=== PATIENT | female | born 1950 | race Caucasian/White ===

== ENCOUNTER 2020-04-29 05:07 | Observation (INO) ==
--- NOTE | 2020-03-20 15:56 | PAT Medication Instructions ---
Medication Instructions Date of Service March 20, 2020 Home Medications Boswellia 1 tab PO HS anastrozole 1 mg PO QPM cetirizine [Zyrtec] 10 mg PO QPM cholecalciferol (vitamin D3) 2,000 units PO QPM fluticasone propionate 2 sprays INTNAS DAILY PRN lactobacillus combination no.8 [Adult Probiotic] 3,000 mmu cells PO QPM omeprazole 20 mg PO QPM turmeric root extract 500 mg PO QPM ASK your prescriber and surgeon anastrozole 1 mg PO QPM STOP taking 2 weeks before surgery (or as soon as possible if surgery is within 2 weeks) turmeric root extract 500 mg PO QPM Boswellia 1 tab PO HS Take morning of surgery With a small sip of water, OTHERWISE NOTHING TO EAT OR DRINK AFTER MIDNIGHT: fluticasone propionate 2 sprays INTNAS DAILY PRN (if needed) Take evening before surgery cetirizine [Zyrtec] 10 mg PO QPM cholecalciferol (vitamin D3) 2,000 units PO QPM fluticasone propionate 2 sprays INTNAS DAILY PRN (if needed) lactobacillus combination no.8 [Adult Probiotic] 3,000 mmu cells PO QPM omeprazole 20 mg PO QPM Other Notes If you have any questions please call us at [phone] or [phone] or [phone] or [phone]
--- NOTE | 2020-03-24 13:25 | Anesthesiology Consultation ---
Date of Service March 24, 2020 Assessment & Plan (1) Encounter for pre-operative examination: - Per PAT assessment on 03/24: Travel screen- Lives in [facility]. No known COVID-19 positive contacts. No current COVID-19 related symptoms. Patient had preop COVID testing 01/2020 prior to colonoscopy which was negative. Surgeon arranging preop COVID testing. Awaiting results. Chart Review Chart Review: Acceptable Risk for Surgery (pending surgeon-ordered PCP clearance scheduled 04/06 (MNP)) and Patient seen in Pre Admission Testing Teaching & Discussion Pre-Anesthesia Teaching/Discussion Notes: Instructed NPO after midnight before surgery,except medications with 15 cc of water. Medication instructions provided according to the PAT guidelines. History Surgery Operation Date: 04/29/20 08:40 Proposed Procedures p Right Total Knee Arthroplasty - Abisai Latham MD Height/Weight Height: 5 ft 2 in Weight: 89.4 kg Allergies Allergy/AdvReac Type Severity Reaction Status Date / Time No Known Allergies Allergy Mild Verified 03/17/20 08:55 Medications Home Medications Medication Instructions Recorded Confirmed Last Taken Boswellia 1 tab PO HS 03/17/20 03/17/20 Unknown anastrozole 1 mg PO QPM 03/17/20 03/17/20 Unknown cetirizine [Zyrtec] 10 mg PO QPM 03/17/20 03/17/20 Unknown cholecalciferol (vitamin D3) 2,000 units PO QPM 03/17/20 03/17/20 Unknown fluticasone propionate 2 sprays INTNAS DAILY PRN 03/17/20 03/17/20 Unknown lactobacillus combination no.8 3,000 mmu cells PO QPM 03/17/20 03/17/20 Unknown [Adult Probiotic] turmeric root extract 500 mg PO QPM 03/17/20 03/17/20 Unknown famotidine 20 mg tablet 20 mg PO DAILY #90 tab 03/23/20 Unknown Past Medical History Medical History Allergic rhinitis Anxiety Arthritis GERD (gastroesophageal reflux disease) controlled H/O malignant neoplasm of female breast s/p right mastectomy, chemo (2013) Insomnia Migraine hx Obesity Exercise / Class Metabolic Activity II 4-5 Yardwork/Stairs/Walk up hill Past Family History Family History Sister Diabetes Colorectal cancer Brother Diabetes Leukemia Aunt Ovarian cancer Brother Diabetes Sister Diabetes Father Diabetes Mother Diabetes Past Surgical History Surgical History H/O colonoscopy History of ankle surgery LEFT History of mandibular surgery ROM WNL History of mastectomy right (2012) Hx of hand surgery LEFT THUMB S/P hysterectomy TOTAL S/P knee replacement LEFT Past Anesthesia History No Hx of Anesthesia Complications and No Family Hx of Anesthesia Complications History of PONV No Hx of PONV and No Hx of Motion Sickness Social History Smoking Status: Never smoker Do You Dip or Chew Tobacco: No Hx Alcohol Use: No Hx Substance Use: No Review of Systems Patient denies chest pain, shortness of breath, dyspnea on exertion,fever, chills, cough, wheezing, palpitations. Physical Exam Vital Signs VITALS BP 140/72 P 84 TEMP 98.0 SP02 96%RA RESP 18 PHYSICAL Full neck and c-spine range of motion. Full TMJ range of motion. TMD 3 finger breaths Mallampati Score 2 Dentition: full upper, partial lower Lungs: clear throughout to auscultation Cardiac: regular rate and rhythm, no murmurs noted Spine: normal Carotid arteries: negative bruit Extremities: no edema Testing Laboratory Results 03/24/20 13:44 03/24/20 13:44 PT 10.7 Seconds (9.0-12.0) 03/24/20 13:44 INR 1.0 (0.9-1.1) 03/24/20 13:44 APTT 26.4 Seconds (21.0-31.0) 03/24/20 13:44 Hemoglobin A1c 6.2 % (4.5-5.6) H 03/24/20 13:44 Urine Color Yellow 03/24/20 13:44 Urine Appearance Clear (Clear) 03/24/20 13:44 Urine pH 5.0 (4.5-7.5) 03/24/20 13:44 Ur Specific [place] 1.019 (1.000-1.030) 03/24/20 13:44 Urine Protein Negative (Negative) 03/24/20 13:44 Urine Glucose (UA) 1+ (Negative) H 03/24/20 13:44 Urine Ketones Negative (Negative) 03/24/20 13:44 Urine Nitrite Negative (Negative) 03/24/20 13:44 Ur Leukocyte Esterase 1+ (Negative) H 03/24/20 13:44 Urine WBC (Auto) 5-10 /hpf (0-5) H 03/24/20 13:44 Urine RBC (Auto) 0-4 /hpf (0-4) 03/24/20 13:44 U Hyaline Cast (Auto) 1-5 /lpf (0-5) 03/24/20 13:44 U Epithel Cells (Auto) 10-20 /lpf (0-5) H 03/24/20 13:44 Urine Bacteria (Auto) Negative (Negative) 03/24/20 13:44 Blood Type A Positive 03/24/20 13:44 Antibody Screen NEGATIVE 03/24/20 13:44 Elevated glucose at 273-- but hgba1c 6.2%; patient will be seeing PCP 04/06/20 ([facility] [place]) prior to surgery Electrocardiogram Date: 03/24/20 Findings: + NSR @ (79) Chest X-Ray Date: 03/24/20 Findings: + NAD
--- NOTE | 2020-03-24 14:07 | XRay Report ---
XR chest Pre-admission PA/Lat HISTORY: 70 years-old Female pat preoperative exam. No acute chest complaints COMPARISON: Chest radiograph 01/16/2020 TECHNIQUE: PA and lateral views of the chest FINDINGS: Cardiomediastinal and hilar silhouettes are within normal limits. No pneumothorax, pleural effusion, airspace consolidation or overt pulmonary edema. Bones of the chest appear grossly intact. IMPRESSION: No acute process. ACT 112: Negative or not required by law. The above report was generated using voice recognition software. It may contain grammatical, syntax o r spelling errors. Electronically signed by: Rico Muhammad M.D. 03/24/2020 2:05 PM
[2020-03-24 14:49] LABS: Basophils # (auto) 0.04 K/uL (0-0.2); Basophils % (auto) 0.5 %; Eosinophils # (auto) 0.15 K/uL (0-0.5); Hematocrit (blood only) 42.8 % (37-47); Hemoglobin 14.2 g/dL (12.0-16.0); Immature Granulocytes # (auto) 0.03 K/uL (0.00-0.02); Immature Granulocytes % (auto) 0.4 %; Lymphocytes # (auto) 2.14 K/uL (1.2-3.4); Mean Corpuscular Hemoglobin 29.2 pg (25-34); Mean Corpuscular Hgb Conc 33.2 g/dL (32-36); Mean Corpuscular Volume 87.9 fL (80-100); Mean Platelet Volume 11.4 fL (7.4-10.4); Monocytes # (auto) 0.44 K/uL (0.11-0.59); Monocytes % (auto) 5.8 %; Neutrophils # (auto) 4.83 K/uL (1.4-6.5); Neutrophils % (auto) 63.3 %; Platelet Count 238 K/uL (130-400); RDW Coefficient of Variation 14.8 % (11.5-14.5); RDW Standard Deviation 47.5 fL (36.4-46.3); Red Blood Count 4.87 M/uL (4.2-5.4); White Blood Count 7.63 K/uL (4.8-10.8)
[2020-03-24 14:51] LABS: Appearance Urine Clear (Clear); Bacteria Urine Automated Negative (Negative); Bilirubin Urine Negative (Negative); Blood Urine Negative (Negative); Color Urine Yellow; Glucose Urine UA 1+ (Negative); Ketones Urine Negative (Negative); Leukocyte Esterase Urine 1+ (Negative); Nitrite Urine Negative (Negative); Protein Urine Negative (Negative); RBC Urine Automated 0-4 /hpf (0-4); Specific Gravity Urine 1.019 (1.000-1.030); Urobilinogen Urine Negative (Negative)
[2020-03-24 14:56] LABS: Albumin Level 3.5 gm/dl (3.4-5.0); BUN Creatinine Ratio 16.8 (10-20); Calcium 10.3 mg/dl (8.5-10.1); Creatinine Clr Calc Pharmacy 47.6 ml/min; Est GFR (African American) 57.5; Est GFR (Non-African American) 49.6; Potassium 4.8 mmol/L (3.5-5.1)
[2020-03-24 15:00] LABS: Partial Thromboplastin Ratio 0.9; Partial Thromboplastin Time 26.4 Seconds (21.0-31.0); Prothrombin Time 10.7 Seconds (9.0-12.0)
--- NOTE | 2020-03-24 15:51 | Electrocardiogram Report ---
Test Reason : Blood Pressure : / mmHG Vent. Rate : 079 BPM Atrial Rate : 079 BPM P-R Int : 148 ms QRS Dur : 076 ms QT Int : 386 ms P-R-T Axes : 062 -14 048 degrees QTc Int : 442 ms Normal sinus rhythm Normal ECG When compared with ECG of 15-JAN-2010 15:41, No significant change was found Confirmed by Scott Arroyo ([id number]) on 03/24/2020 3:51:08 PM Referred By: Abisai Latham Confirmed By:Scott Arroyo
[2020-03-25 06:06] LABS: Estimated Average Glucose 131 mg/dl; Hemoglobin A1C 6.2 % (4.5-5.6)
--- NOTE | 2020-04-28 20:23 | History and Physical Report ---
DATE OF ADMISSION: 04/29/2020 CHIEF COMPLAINT: Chronic right knee pain. HISTORY OF PRESENT ILLNESS: This is a 70-year-old female patient of Dr. Latham'rukhsana complaining of chronic right knee pain, longstanding, now progressively getting worse. The patient has been diagnosed with end-stage osteoarthritis per clinical and radiographic exams. The patient has failed conservative treatment including intra-articular injections, anti-inflammatories, home exercise program and the use of a brace. The patient wished to proceed with a right total knee arthroplasty. PAST MEDICAL HISTORY: Acid reflux, obesity, diet medications, and breast cancer. SOCIAL HISTORY: Nonsmoker. Occasional drinker. PAST SURGICAL HISTORY: Left ankle, left knee, left thumb, hysterectomy and jaw surgery. FAMILY HISTORY: Noncontributory. REVIEW OF SYSTEMS: The patient complains of chronic right knee pain, otherwise denies any shortness of breath, chest pain, nausea, vomiting or any other joint complaints. PHYSICAL EXAMINATION: GENERAL: Well-developed, well-nourished 70-year-old female in no acute distress. She is alert and oriented x3 and pleasant. HEENT: Normocephalic, atraumatic. Extraocular motions are intact. Pupils are equal and reactive to light. HEART: Regular rate and rhythm, no murmurs. LUNGS: Clear. ABDOMEN: Soft, nontender, bowel sounds present. EXTREMITIES: Right lower extremity limited range of motion of 0-120 with a varus deformity. Medial joint line tenderness with crepitation and pain with range of motion. Neurologically and neurovascularly intact with 5/5 strength. DIAGNOSES: Right knee end-stage osteoarthritis, acid reflux, obesity, diet medications, and breast cancer. PLAN: The patient was advised of his diagnosis. Indications, risks, benefits, postop course have all been reviewed. The patient wished to proceed with right total knee arthroplasty. Necessary consent forms, preoperative testing and clearances will be obtained.
[2020-04-29] MEDS ORDERED: dexAMETHasone 4 MG TAB PO SCH (06:00)
[2020-04-29] MEDS ORDERED: TRANEXAMIC ACID 1,000 MG **IV Intra-op IV SCH (06:00)
[2020-04-29] MEDS ORDERED: CeleBREX 200 MG CAP PO SCH (06:00)
[2020-04-29] MEDS ORDERED: FAMOTIDINE 20 MG TAB PO SCH (06:00)
[2020-04-29] MEDS ORDERED: CEFAZOLIN 2000MG 2,000 MG/15 ML SYR IV SCH (06:00)
[2020-04-29] MEDS ORDERED: TRANEXAMIC ACID 1,000 MG **IV Pre-op IV SCH (06:00)
[2020-04-29] MEDS ORDERED: GABAPENTIN 300 MG CAP PO SCH (06:00)
[2020-04-29] MEDS ORDERED: ROPIVACAINE 0.5% HCL/PF 150 MG, BUPIVACAINE 0.5% MPF 30 ML, EPINEPHrine 30MG/30ML (OR U... INFIL SCH (06:00)
[2020-04-29] MEDS ORDERED: ACETAMINOPHEN 500 MG TAB PO SCH (06:00)
[2020-04-29] MEDS ORDERED: LR 500ML BOLUS, THEN 15ML/HR IV SCH (06:00)
[2020-04-29] MEDS ORDERED: METOCLOPRAMIDE HCL 10 MG TABLET PO SCH (06:00)
[2020-04-29] MEDS ORDERED: BUPIVACAINE 0.5 % 5 MG/1 ML PF 10ML VIAL ONE (06:15)
[2020-04-29] MEDS ORDERED: BUPIVACAINE/EPINEPHRINE 0.25% 1:200,000 30 ML VIAL ONE (06:15)
[2020-04-29] MEDS ORDERED: MIDAZOLAM HCL 1 MG/ML 2ML VIAL ONE (06:21)
[2020-04-29] MEDS ORDERED: fentaNYL citrate 100 MCG/2 ML VIAL ONE (06:22)
[2020-04-29] MEDS ORDERED: LIDOCAINE HCL 2% 2 ML VIAL/AMP(20MG/ML) INFIL ONE (06:27)
[2020-04-29] MEDS ORDERED: ONDANSETRON INJ 2 MG/ML 2 ML VIAL ONE (06:27)
[2020-04-29] MEDS ORDERED: PROPOFOL IV EMULSION 10 MG/ML 20 ML VIAL IV ONE ×3 (06:27→08:40)
[2020-04-29] MEDS ORDERED: fentaNYL citrate 100 MCG/2 ML VIAL IV PRN (06:40)
[2020-04-29] MEDS ORDERED: ONDANSETRON INJ 2 MG/ML 2 ML VIAL IV PRN ×2 (06:40→09:52)
[2020-04-29] MEDS ORDERED: ATROPINE SULFATE 0.1 MG/ML 10ML SYR IV PRN (06:40)
[2020-04-29] MEDS ORDERED: HYDROmorphone INJ 2 MG/ML SYR/VIAL IV PRN (06:40)
[2020-04-29] MEDS ORDERED: ePHEDrine sulfate 50 MG/ML AMP IV PRN (06:40)
[2020-04-29] MEDS ORDERED: BACITRACIN INJ 50,000 UNIT VIAL ONE (06:44)
[2020-04-29] MEDS ORDERED: ORTHO JOINT ANESTHETIC ONE (06:44)
--- NOTE | 2020-04-29 06:54 | History & Physical Bridge Note ---
Date of Service April 29, 2020 History & Physical Bridge Note I have examined the patient, reviewed the History & Physical and in the interval since the performance of the History & Physical I have noted the following changes of clinical significance: no changes noted
[2020-04-29] MEDS ORDERED: ePHEDrine sulfate 50 MG/ML SYR ONE (07:31)
--- NOTE | 2020-04-29 08:44 | Operative Report ---
Post Operative Report Pre & Post Diagnosis Operation Date: 04/29/20 07:00 Pre-Op Diagnosis: Unilateral Primary Osteoarthritis, Right Knee Post-Op Diagnosis: Unilateral Primary Osteoarthritis, Right Knee I identified the patient and participated in the time-out.: Yes Procedure Operation Date: 04/29/20 07:00 Actual Procedures p Right Total Knee Arthroplasty(Right) - Abisai Latham MD Surgeon Abisai Latham MD Butter Printer Bruce FARRELL Estimated Blood Loss 5 Findings Consistent with Post-Op Diagnosis Specimens Bone cuts Drains 2 Hemovac Anesthesia Type MAC Spinal Regional Complications none Disposition Accompanied Patient To Recovery: No Disposition: Recovery Room Indications 70 female with progressive osteoarthritis in right knee. Radiographs demonstrate [id number] medial patellofemoral joint and moderately advanced medial compartment osteoarthritis .patient has successful left knee replacement Description of Procedure The patient was taken to the operating room and anesthetized under spinal MAC regional. Patient was placed supine on the the operating table. A pneumatic tourniquet was placed about the right moderately obese upper thigh. The knee exam demonstrated no instability patellofemoral crepitation good range of motion 0 through 130. The involved leg was elevated exsanguinated with Esmarch bandage and the pneumatic tourniquet was raised to 325 millimeters mercury. A longitudinal incision was made across the anterior knee. Skin flaps were elevated. An incision was made into the medial retinaculum and extended up into the mid third of the quadriceps tendon and extended down to the tibial tubercle. Intra-articular findings demonstrated tricompartmental DJD with grade 4 medial patellofemoral OA and grade III chondromalacia medial compartment. The knee was exposed by excising cruciate ligaments and menisci. The infrapatellar fat pad was resected. The fat pad over the anterior femur at the upper aspect of the articular surface was resected for placement of the component in that area. A subperiosteal peel lateral release was performed around the patella The Maya [employer] Nephew journey 2.0 posterior stabilized total knee arthroplasty system was utilized for the procedure. The custom femoral cutting guide was pinned in position. The distal femoral cut was made. The size 4, 5 in 1 cutting block was placed. The anterior posterior and chamfer cuts were made. The knee was extended and a free hand cut technique was performed to the patella. The patella with was measured and the width was reproduced using a 32 symmetrical patella component. 3 drill holes are made for the patella component pegs. The tibia was then subluxed. The custom tibial cutting block was pinned in position and the proximal tibial cut was made with the oscillating saw. The size 2 tibial trial was externally rotated in line with the tibial tubercle and pinned in position. The punch for the stem was used. The femoral trial was inserted and centered the notch cutting devices were used and the collet was placed. Tibial trials were used for the insert. The size 12 trial gave balanced ligaments through full range of motion. Patella tracking was assessed with range of motion. The patella tracked centrally. The trials were removed. The Orthomix anesthetic cocktail was injected per protocol. The cut bone surfaces and soft tissue were copiously irrigated with antibiotic solution with bacitracin. The final components were cemented with Simplex cement. The final components were Maya [employer] Nephew journey 2.0 size 4 right posterior stabilized femoral component, 2 tibial baseplate, 12 mm high flex posterior stabilized polyethylene tibial insert and 32 symmetrical patella.. While the cement cured the Betadine soak was used per protocol. When the cement cured the knee was copiously irrigated with pulsatile lavage antibiotic solution with bacitracin. 2 drains were brought out laterally connected to Hemovac. The quadriceps tendon and medial retinaculum were closed with interrupted [id number] #1 Vicryl sutures. The knee was taken through full range of motion and repair was secure. The subcutaneous tissues were closed with 2-0 Vicryl sutures. The skin was closed with tatum. A sterile dressing was applied. The tourniquet was let down and the patient had good capillary refill to the extremity. The patient tolerated the procedure well. My physician assistant quality manager Bruce FARRELL assisted in the procedure including prepping draping leg positioning soft tissue retraction instrument management and assisted in the closure ,dressings application and will participate in postoperative care the patient. I attest to the content of the Intraoperative Record and any orders documented therein. Any exceptions are noted below.
--- NOTE | 2020-04-29 09:42 | XRay Report ---
XR knee RT 1 or 2V routine CLINICAL HISTORY: Surgical Post Op COMPARISON: None FINDINGS: Alignment of the total right knee arthroplasty is anatomic. There is no periprosthetic fra cture or unexpected radiopaque foreign body. There are skin tatum. IMPRESSION: Expected findings following total right knee arthroplasty. ACT 112: Negative or not required by law. Electronically signed by: Petey Rao M.D. 04/29/2020 9:40 AM
[2020-04-29] MEDS ORDERED: HYDROmorphone INJ 0.5 MG/0.5 ML SYR IV PRN (09:52)
[2020-04-29] MEDS ORDERED: FLUTICASONE PROPIONATE NA SPR 16 GM BTL PRN (09:52)
[2020-04-29] MEDS ORDERED: MAGNESIUM HYDROXIDE SUSP 30 ML UDC PO PRN (09:52)
[2020-04-29] MEDS ORDERED: NALOXONE HCL 0.4 MG/1 ML VIAL/CARP IV PRN (09:52)
[2020-04-29] MEDS ORDERED: bisacodyL 10 MG SUPP PR PRN (09:52)
[2020-04-29] MEDS: SODIUM CHLORIDE 0.9% 1000ML 1,000 ML IV SCH ×2 (10:04→20:35)
--- NOTE | 2020-04-29 10:16 | Hospitalist Consultation ---
Date of Consultation April 29, 2020 Assessment & Plan (1) Status post total right knee replacement: - Pain management, bowel regimen and DVT ppx with ASA 81 mg BID per the primary team - PT/OT consults, pt is planning on home health services for PT/OT initially. Lives alone, daughter planning on staying with her for several days after discharge. - Follow am CBC to monitor for acute blood loss (2) H/O malignant neoplasm of female breast: (3) History of mastectomy: -History of such in 2013, in remission -Continue anastrozole 1 mg QPM (4) Prediabetes: -A1c = 6.2 from 03/26/2020 -Monitor glucose with additional steroids given during surgical procedure, likely to be elevated in the interim, diet and exercise encouraged (5) Obesity: -BMI 36.3, diet and exercise to be encouraged while what is seeing here for leg other than being septic from something (6) Anxiety: -History of such, well-controlled, not on medication (7) Insomnia: -May cont Boswellia for sleep prn (8) Allergic rhinitis: - Can continue TIE INSPECTOR cetirizine, turmeric, Boswellia for anti-inflammatory properties. - Nasal spray (9) Urinary retention: Around 12:00 on the day of surgery, she was noted to be bladder scanned for 900 mL's. A straight catheterization was performed and the nurse was able to drain 1200 mL's of urine. Continue bladder scans and straight cath as needed Likely secondary to anesthesia (10) DVT prophylaxis: DVT ppx: asa bid, ambulatory CODE: FULL Thank you for involving us in the care of Mrs. Lewis. Please do not hesitate to call with questions or concerns. At this time medicine service will sign off. Supervising Physician Co-Signing Physician Notes PA Supervision Note: I personally saw and examined the patient. I verified all strickland points and agree with JAMI Coffman with the following exceptions and/or additions: Patient feeling quite well after surgery. Blood pressure is mildly elevated but just with straight cath for 1200 mL's of urine. Otherwise denies chest pain or shortness of breath, no nausea or lightheadedness, no headache. She has not eaten yet. Is feeling hungry. Has very minimal pain in the right knee. She is able to feel her feet and wiggle her toes. History and ROS reviewed as above Vitals reviewed Gen: [AAOx3, NAD, obese] HEENT: [anicteric sclerae, EOMI] CV: [RRR no mgr nl S1S2] Pulm: [CTAB no wcr] Abd: [+BS soft NT ND no masses or hernias] Ext: [no edema, 2+ DP pulses, Right knee with Rickey wrap in place not removed with ice pack over the right knee] Skin: [no rashes, warm/dry] Neuro: [full strength throughout] 70-year-old female with history of GERD, obesity, osteoarthritis, breast cancer, and allergies, here for right TKA. Doing very well Minimal elevation blood pressure likely secondary to pain and urinary retention. If urinary retention persists past 24 hours, recommend consultation with urology. Hospitalist service will sign off at this time. Thank you for this consultation. History of Present Illness Reason for Consultation: Medical management postoperatively Attending Physician: Abisai Latham MD History of Present Illness This is a 70-year-old female with PMHx of breast cancer history of right mastectomy and chemotherapy in 2013, prediabetes, GERD, arthritis, anxiety, obesity with BMI of 36.3, migraine history, insomnia and allergic rhinitis who presented for elective right total knee arthroplasty by Dr. Latham on 04/29/2020. She reports doing well after surgery, is able to feel her toes and wiggle them on the right, still numb in the right knee. She has not yet eaten anything. Patient plans to have her daughter stay with her for several days after going home from the hospital as she lives alone, is hopeful that she can have home health services set up prior to DC for in-home PT/OT. Denies any other acute complaints. Allergies Allergy/AdvReac Type Severity Reaction Status Date / Time No Known Allergies Allergy Mild Verified 04/29/20 05:28 Home Medications Home Medications Medication Instructions Recorded Confirmed Type Boswellia 1 tab PO HS 03/17/20 04/29/20 History anastrozole 1 mg PO QPM 03/17/20 04/29/20 History cetirizine [Zyrtec] 10 mg PO QPM 03/17/20 04/29/20 History cholecalciferol (vitamin D3) 2,000 units PO QPM 03/17/20 04/29/20 History fluticasone propionate 2 sprays INTNAS DAILY PRN 03/17/20 04/29/20 History lactobacillus combination no.8 3,000 mmu cells PO QPM 03/17/20 04/29/20 History [Adult Probiotic] turmeric root extract 500 mg PO QPM 03/17/20 04/29/20 History famotidine 20 mg tablet 20 mg PO DAILY #90 tab 03/23/20 04/06/20 Rx Patient History Medical History (Updated 04/29/20 @ 12:17 by Maria T Edgar MD) Allergic rhinitis Anxiety Arthritis GERD (gastroesophageal reflux disease) controlled H/O malignant neoplasm of female breast s/p right mastectomy, chemo (2013) Insomnia Migraine hx Obesity Surgical History (Updated 04/29/20 @ 10:09 by Ashely Coffman PA-C) H/O colonoscopy History of ankle surgery LEFT History of mandibular surgery ROM WNL History of mastectomy right (2012) Hx of hand surgery LEFT THUMB S/P hysterectomy TOTAL S/P knee replacement LEFT Family History Sister Diabetes Colorectal cancer Brother Diabetes Leukemia Aunt Ovarian cancer Brother Diabetes Sister Diabetes Father Diabetes Mother Diabetes Social History (Updated 04/18/19 @ 06:38 by Linh Bhatia MD) Smoking Status: Never smoker Second Hand Exposure: Yes (SPOUSE SMOKED); Do You Dip or Chew Tobacco: No; Hx Alcohol Use: No Hx Substance Use: No Preferred Language: Tajik Communication Ability: Effective Management Engineer Required: No Beliefs That Will Affect Care: None Current Living Situation: Alone Other Information That Helps Us Care for You: Yes (SPOUSE 3 YRS AGO) Feels Safe at Home: Yes Safety Concerns: Feels Safe At This Time Assistive Devices: Denture - Upper, Denture - Lower and Glasses Assistive Devices Comment: PARTIAL LOWER/FULL UPPER Review of Systems Review of Systems: Constitutional: No fever, sweats or chills Eyes: No diplopia, no worsening or blurred vision ENT: normal hearing, no trouble swallowing Respiratory: No cough, sputum, dyspnea at rest or on exertion Cardiovascular: No chest pain, tightness or palpitations Abdomen: No pain, nausea, vomiting, diarrhea or constipation Musculoskeletal: No joint pain, calf pain, swelling Neurologic: No weakness, numbness/tingling, or balance problems Psychiatric: No anxiety or depression Skin: No rash or itch Physical Exam 2 Physical Exam: General: awake, alert, no apparent distress, + obese, BMI 36.3 Head: Normocephalic, atraumatic ENT: PERRL, EOMI, no pharyngeal exudate, mucous membranes moist Chest: Clear to auscultation, on room air, no adventitious breath sounds Cardiac: Regular rate and rhythm, no murmur, no JVD, normal peripheral pulses, good capillary refill Abdominal: NABS x 4 quadrants, soft, nondistended, nontender to palpation, no rebound or guarding Extremities: + RLE has RICKEY wrap, ice pack in place, bandage C/D/I, SALO drain in place, otherwise normal inspection, no peripheral edema or erythema, calfs nontender to palpation Psych: Normal mood and affect Neuro: AAO x 3, strength intact bilaterally and rated 5/5, no motor deficits, speech is clear, no peripheral sensory deficits Results & Data Results & Data ([facility]) Vital Signs (Past 12 Hours) Vital Signs Temp Pulse Pulse Resp BP BP Pulse Ox 04/29/20 09:55 36.5 C 70 16 113/67 93 04/29/20 09:30 73 18 132/66 93 04/29/20 09:20 36.4 C L 70 16 135/60 93 04/29/20 09:10 77 16 126/67 94 04/29/20 09:02 36.6 C 85 19 128/73 96 04/29/20 05:58 62 20 153/72 H 98 04/29/20 05:42 36.7 C 70 20 177/90 H 98 PG Care Time/CCT Total # of Minutes Spent Total Time Spent with Patient: Total time spent is greater than 50% in coordination of care (as documented) at patient's floor/unit and/or counseling patient: Coding Level of Care Code 01285 Inpt Consult Level 3 Diagnoses Status post total right knee replacement Z96.651 H/O malignant neoplasm of female breast Z85.3 History of mastectomy Z90.10 Prediabetes R73.03 Obesity E66.9 Anxiety F41.9 Insomnia G47.00 Allergic rhinitis J30.9 Urinary retention R33.9 DVT prophylaxis Z29.9
--- NOTE | 2020-04-29 10:20 | Anesthesiology Progress Note ---
Date of Service April 29, 2020 Anesthesia Post Procedure Vital Signs Vital Signs: Temp Pulse Pulse Resp BP BP Pulse Ox 04/29/20 09:55 36.5 C 70 16 113/67 93 04/29/20 09:30 73 18 132/66 93 04/29/20 09:20 36.4 C L 70 16 135/60 93 04/29/20 09:10 77 16 126/67 94 04/29/20 09:02 36.6 C 85 19 128/73 96 04/29/20 05:58 62 20 153/72 H 98 04/29/20 05:42 36.7 C 70 20 177/90 H 98 Transfer of Care Handoff Completed per policy Notes Mental Status: alert / awake / arousable and participated in evaluation Patient Amnestic to Procedure: Yes Nausea / Vomiting: adequately controlled Pain: adequately controlled Airway Patency, RR, SpO2: stable & adequate BP & HR: stable & adequate Hydration State: stable & adequate Neuraxial Anesthesia: was administered and sensory block is resolving Anesthetic Complications: no major complications apparent and Pt Satisfied with anesthetic care
[2020-04-29] MEDS: ACETAMINOPHEN 500 MG TAB PO SCH ×2 (12:55→21:01)
[2020-04-29] MEDS: CEFAZOLIN 2000MG 2,000 MG/15 ML SYR IV SCH ×2 (15:02→22:03)
[2020-04-29] MEDS: OXYCODONE HCL IR 5 MG TAB (IMMEDIATE RELEASE) PO PRN ×3 (15:06→23:20)
[2020-04-29] MEDS: FERROUS GLUCONATE 324 MG TAB PO SCH (17:28)
[2020-04-29] MEDS ORDERED: BOSWELLIA PO SCH (21:00)
[2020-04-29] MEDS: SENNA 8.6 MG TAB PO SCH (21:00)
[2020-04-29] MEDS: ASPIRIN 81 MG ECTAB PO SCH (21:00)
[2020-04-29] MEDS: ANASTROZOLE 1 MG TAB PO SCH (21:01)
[2020-04-29] MEDS: DOCUSATE SODIUM 100 MG CAP PO SCH (21:01)
[2020-04-29] MEDS: CETIRIZINE HCL 10 MG TABLET PO SCH (21:01)
[2020-04-30] MEDS: ACETAMINOPHEN 500 MG TAB PO SCH ×3 (05:21→22:03)
[2020-04-30 07:02] LABS: BUN Creatinine Ratio 19.2 (10-20); Calcium 9.4 mg/dl (8.5-10.1); Creatinine Clr Calc Pharmacy 57.9 ml/min; Est GFR (African American) 76.1; Est GFR (Non-African American) 65.6; Potassium 4.2 mmol/L (3.5-5.1)
[2020-04-30 07:22] LABS: Mean Corpuscular Hemoglobin 29.1 pg (25-34); Mean Corpuscular Volume 87.2 fL (80-100); Mean Platelet Volume 11.8 fL (7.4-10.4); Platelet Count 213 K/uL (130-400); RDW Coefficient of Variation 14.8 % (11.5-14.5); RDW Standard Deviation 47.6 fL (36.4-46.3); Red Blood Count 4.47 M/uL (4.2-5.4); White Blood Count 18.96 K/uL (4.8-10.8)
[2020-04-30 07:27] LABS: Mean Corpuscular Hgb Conc 33.3 g/dL (32-36)
[2020-04-30] MEDS: ASPIRIN 81 MG ECTAB PO SCH ×2 (08:28→22:03)
[2020-04-30] MEDS: FERROUS GLUCONATE 324 MG TAB PO SCH ×2 (08:28→17:51)
[2020-04-30] MEDS: DOCUSATE SODIUM 100 MG CAP PO SCH ×2 (08:28→22:03)
[2020-04-30] MEDS: MULTIVITAMIN TAB PO SCH (08:28)
--- NOTE | 2020-04-30 09:39 | Orthopedic Progress Note ---
Date of Service April 30, 2020 Assessment & Plan (1) Arthritis of knee, right: Postop day 1 status post right total knee arthroplasty. PT/OT protocols. Weightbearing as tolerated. DVT prophylaxis with ASA p.o. twice daily, VICTORINO Beltran. Pain management as written. DC planning - home with home health services. Admission and Anticipated Discharge Date Admission Date: April 29, 2020 Subjective Postop day 1 Patient is currently sitting up in her bed eating breakfast. No complaints this morning. Pain is controlled. Denies shortness of breath, chest pain, lightheadedness. Physical Exam Physical Exam: Dressings are clean, dry, and intact. Calves are soft nontender. Neurovascular is intact. Toes are mobile. She has good dorsiflexion and plantarflexion of the right foot. Hemovac drainage was 100 mL's from the previous shift. Results & Data ([facility]) Vital Signs (Past 12 Hours) Vital Signs Temp Pulse Resp BP Pulse Ox 04/30/20 06:35 36.7 C 55 L 16 137/74 95 04/30/20 03:29 36.6 C 54 L 16 128/72 96 04/29/20 22:55 36.5 C 53 L 16 158/70 H 97 Laboratory Results Laboratory Results WBC 18.96 K/uL (4.8-10.8) H 04/30/20 07:07 RBC 4.47 M/uL (4.2-5.4) 04/30/20 07:07 Hgb 13.0 g/dL (12.0-16.0) 04/30/20 07:07 Hct 39.0 % (37-47) 04/30/20 07:07 MCV 87.2 fL (80-100) 04/30/20 07:07 MCH 29.1 pg (25-34) 04/30/20 07:07 MCHC 33.3 g/dL (32-36) 04/30/20 07:07 RDW Std Deviation 47.6 fL (36.4-46.3) H 04/30/20 07:07 RDW Coeff of Narciso 14.8 % (11.5-14.5) H 04/30/20 07:07 Plt Count 213 K/uL (130-400) 04/30/20 07:07 MPV 11.8 fL (7.4-10.4) H 04/30/20 07:07 Immature Gran % (Auto) 0.4 % 03/24/20 13:44 Neut % (Auto) 63.3 % 03/24/20 13:44 Lymph % (Auto) 28.0 % 03/24/20 13:44 [place] % (Auto) 5.8 % 03/24/20 13:44 Eos % (Auto) 2.0 % 03/24/20 13:44 Baso % (Auto) 0.5 % 03/24/20 13:44 Neut # (Auto) 4.83 K/uL (1.4-6.5) 03/24/20 13:44 Lymph # (Auto) 2.14 K/uL (1.2-3.4) 03/24/20 13:44 [place] # (Auto) 0.44 K/uL (0.11-0.59) 03/24/20 13:44 Eos # (Auto) 0.15 K/uL (0-0.5) 03/24/20 13:44 Baso # (Auto) 0.04 K/uL (0-0.2) 03/24/20 13:44 Immature Gran # (Auto) 0.03 K/uL (0.00-0.02) H 03/24/20 13:44 Absolute Nucleated RBC Cancelled 04/30/20 06:08 Nucleated RBC % (auto) Cancelled 04/30/20 06:08 Platelet Estimate Cancelled 04/30/20 06:08 PT 10.7 Seconds (9.0-12.0) 03/24/20 13:44 INR 1.0 (0.9-1.1) 03/24/20 13:44 APTT 26.4 Seconds (21.0-31.0) 03/24/20 13:44 PTT Ratio 0.9 03/24/20 13:44 Sodium 140 mmol/L (136-145) 04/30/20 06:08 Potassium 4.2 mmol/L (3.5-5.1) 04/30/20 06:08 Chloride 110 mmol/L (98-107) H 04/30/20 06:08 Carbon Dioxide 23 mmol/L (21-32) 04/30/20 06:08 Anion Gap 7.0 (3-11) 04/30/20 06:08 BUN 17 mg/dl (7-18) 04/30/20 06:08 Creatinine 0.88 mg/dl (0.6-1.2) 04/30/20 06:08 Est Cr Clr Drug Dosing 57.9 ml/min 04/30/20 06:08 Est GFR ( Amer) 76.1 04/30/20 06:08 Est GFR (Non-Af Amer) 65.6 04/30/20 06:08 BUN/Creatinine Ratio 19.2 (10-20) 04/30/20 06:08 Glucose 127 mg/dl (70-99) H 04/30/20 06:08 POC Glucose 140 mg/dl (70-99) H 04/29/20 09:06 Estimat Average Glucose 131 mg/dl 03/24/20 13:44 Hemoglobin A1c 6.2 % (4.5-5.6) H 03/24/20 13:44 Calcium 9.4 mg/dl (8.5-10.1) 04/30/20 06:08 Albumin 3.5 gm/dl (3.4-5.0) 03/24/20 13:44 Urine Color Yellow 03/24/20 13:44 Urine Appearance Clear (Clear) 03/24/20 13:44 Urine pH 5.0 (4.5-7.5) 03/24/20 13:44 Ur Specific [place] 1.019 (1.000-1.030) 03/24/20 13:44 Urine Protein Negative (Negative) 03/24/20 13:44 Urine Glucose (UA) 1+ (Negative) H 03/24/20 13:44 Urine Ketones Negative (Negative) 03/24/20 13:44 Urine Blood Negative (Negative) 03/24/20 13:44 Urine Nitrite Negative (Negative) 03/24/20 13:44 Urine Bilirubin Negative (Negative) 03/24/20 13:44 Urine Urobilinogen Negative (Negative) 03/24/20 13:44 Ur Leukocyte Esterase 1+ (Negative) H 03/24/20 13:44 Urine WBC (Auto) 5-10 /hpf (0-5) H 03/24/20 13:44 Urine RBC (Auto) 0-4 /hpf (0-4) 03/24/20 13:44 U Hyaline Cast (Auto) 1-5 /lpf (0-5) 03/24/20 13:44 U Epithel Cells (Auto) 10-20 /lpf (0-5) H 03/24/20 13:44 Urine Bacteria (Auto) Negative (Negative) 03/24/20 13:44 Blood Type A Positive 03/24/20 13:44 Antibody Screen NEGATIVE 03/24/20 13:44
[2020-04-30] MEDS: OXYCODONE HCL IR 5 MG TAB (IMMEDIATE RELEASE) PO PRN ×3 (10:23→23:56)
[2020-04-30] MEDS: SENNA 8.6 MG TAB PO SCH (22:03)
[2020-04-30] MEDS: ANASTROZOLE 1 MG TAB PO SCH (22:04)
[2020-04-30] MEDS: CETIRIZINE HCL 10 MG TABLET PO SCH (22:04)
[2020-05-01] MEDS: ACETAMINOPHEN 500 MG TAB PO SCH ×3 (05:00→21:55)
[2020-05-01] MEDS: OXYCODONE HCL IR 5 MG TAB (IMMEDIATE RELEASE) PO PRN ×3 (07:28→21:55)
--- NOTE | 2020-05-01 07:29 | Orthopedic Progress Note ---
Date of Service May 01, 2020 Assessment & Plan (1) Arthritis of knee, right: Postop day 2 status post right total knee arthroplasty. PT/OT protocols. Weightbearing as tolerated. DVT prophylaxis with ASA p.o. twice daily, SCDs, VICTORINO urena. Pain management as written. Post op Urinary retention resolved. DC planning - home with home health services today Admission and Anticipated Discharge Date Admission Date: April 29, 2020 Subjective POD #2, Feeling well. Denies SOB, CP, N/V. Pain controlled well. DiD well in PT. Urinary retention has resolved. Physical Exam Physical Exam: Right knee wound vac c/d/i, no drainage. Toes/ ankle mobile. No calf tenderness. A&Ox3. Results & Data ([facility]) Vital Signs (Past 12 Hours) Vital Signs Temp Pulse Resp BP Pulse Ox 05/01/20 06:25 36.9 C 59 L 16 150/73 H 95 04/30/20 22:54 36.8 C 57 L 16 136/68 98
[2020-05-01] MEDS: DOCUSATE SODIUM 100 MG CAP PO SCH ×2 (07:30→21:55)
[2020-05-01] MEDS: MULTIVITAMIN TAB PO SCH (07:30)
[2020-05-01] MEDS: FERROUS GLUCONATE 324 MG TAB PO SCH ×2 (07:30→19:19)
[2020-05-01] MEDS: ASPIRIN 81 MG ECTAB PO SCH ×2 (07:31→21:55)
[2020-05-01] MEDS: SENNA 8.6 MG TAB PO SCH (21:55)
[2020-05-01] MEDS: CETIRIZINE HCL 10 MG TABLET PO SCH (21:55)
[2020-05-01] MEDS: ANASTROZOLE 1 MG TAB PO SCH (21:56)
[2020-05-02] MEDS: OXYCODONE HCL IR 5 MG TAB (IMMEDIATE RELEASE) PO PRN ×3 (02:31→14:26)
[2020-05-02] MEDS: ACETAMINOPHEN 500 MG TAB PO SCH ×2 (05:36→14:03)
[2020-05-02 07:57] VITALS: BP 155/83; PULSE 65; TEMP 98.6; O2SAT 98
[2020-05-02] MEDS: FERROUS GLUCONATE 324 MG TAB PO SCH (08:48)
[2020-05-02] MEDS: MULTIVITAMIN TAB PO SCH (08:48)
[2020-05-02] MEDS: DOCUSATE SODIUM 100 MG CAP PO SCH (08:48)
[2020-05-02] MEDS: ASPIRIN 81 MG ECTAB PO SCH (08:48)
--- NOTE | 2020-05-02 08:51 | Orthopedic Progress Note ---
Date of Service May 02, 2020 Assessment & Plan (1) Arthritis of knee, right: Postop day 3 status post right total knee arthroplasty. PT/OT protocols. Weightbearing as tolerated. DVT prophylaxis with ASA p.o. twice daily, SCDs, VICTORINO urena. Pain management as written. Post op Urinary retention resolved. DC planning - home with home health services today, she plans to go to [facility] where there is no steps, CM aware. Admission and Anticipated Discharge Date Admission Date: April 29, 2020 Subjective POD #3, Feeling well. Denies SOB, CP, N/V. Pain controlled well. DiD well in PT. Physical Exam Physical Exam: Right knee wound vc c/d/i, no drainage. Toes/ ankle mobile. No calf tenderness. A&Ox3. Results & Data ([facility]) Vital Signs (Past 12 Hours) Vital Signs Temp Pulse Resp BP Pulse Ox 05/02/20 07:10 37.0 C 65 16 155/83 H 98 05/01/20 23:05 36.8 C 72 16 169/76 H 95
--- NOTE | 2020-05-02 08:51 | Orthopedic Progress Note ---
Date of Service May 01, 2020 Assessment & Plan Admission and Anticipated Discharge Date Admission Date: April 29, 2020 Results & Data ([facility]) Vital Signs (Past 12 Hours) Vital Signs Temp Pulse Resp BP Pulse Ox 05/01/20 06:25 36.9 C 59 L 16 150/73 H 95 04/30/20 22:54 36.8 C 57 L 16 136/68 98
--- NOTE | 2020-05-04 14:37 | Discharge Summary (DS) ---
DISCHARGE DIAGNOSIS: Osteoarthritis, right knee. SECONDARY DIAGNOSES: History of breast carcinoma with mastectomy, prediabetic, obesity, anxiety, insomnia, allergic rhinitis. CONSULTS: Betsy Coffman/Maria T Edagr MD COMPLICATIONS: None. PROCEDURES: Right total knee arthroplasty performed by Dr. Latham on 04/28/2020. BRIEF HISTORY: As dictated in the history and physical. HOSPITAL SUMMARY: The patient was admitted on the above-noted date and had the above-noted surgery performed, which she tolerated well. On the first postoperative day, she was sitting up in her bed, eating breakfast. No complaints that morning. Pain was controlled. She denied shortness of breath, chest pain or lightheadedness. Dressings were clean, dry and intact. Calves were soft, nontender, neurovascularly intact. Toes were mobile. She had good dorsiflexion and plantar flexion of the right foot and Hemovac drainage was approximately 100 mL from the previous shift. Vital signs were stable and she was afebrile. Hemoglobin was 13.0 and she had a leukocytosis of 18.9, which was felt to be likely due to preoperative steroids and surgical stress. She was started on PT and OT protocols, weightbearing as tolerated and continued on DVT prophylaxis with aspirin p.o. b.i.d., SCDs and VICTORINO hose. Pain management as written. By her second postoperative day, she was feeling well and had no complaints. Pain was controlled. She had developed some urinary retention, which was then resolving. Right knee wound VAC was clean, dry and intact without drainage. Toes and ankle were mobile. No calf tenderness. Vital signs were stable. She was afebrile. The patient initially attempted to go to a skilled facility, which was denied by insurance and plans are in the process of working for home health services, etc. By 05/02/2020 she was continuing to feel well without complaints. Pain was controlled. She is progressing with her PT, right knee wound was without change. Vital signs were stable and she was afebrile and she was discharged to home with home health services on 05/02/2020. For further review, please see chart. LABORATORY AND X-RAY DATA: As per chart. DISCHARGE INSTRUCTIONS: The patient was discharged to home in satisfactory condition on 05/02/2020. DIET: Diabetic. ACTIVITY: Weightbearing as tolerated with walker. Follow [facility] instruction sheets and special care instructions as noted. Follow up with Dr. Latham in 2 weeks. The patient to call for appointment if one has not been made for you. DISCHARGE MEDICATIONS: Acetaminophen 1000 mg p.o. q. 8 hours, aspirin 81 mg p.o. b.i.d., oxycodone 5 mg p.o. q. 4 hours p.r.n. and MiraLax 17 grams p.o. daily. Resume home meds as listed. Stop taking turmeric root extract.
== END 2020-05-02 15:00 | disposition home health service (06) ==
LOC: 3E 05:07 → ASU 05:07
DX: M17.11 Unilateral primary osteoarthritis, right knee; Z68.36 Body mass index [BMI] 36.0-36.9, adult; R73.03 Prediabetes; E66.9 Obesity, unspecified